=== PATIENT | male | born 1960 | race Caucasian/White ===

== ENCOUNTER 2017-03-26 15:50 | Emergency (ER) | payer MEDICAID, MEDICARE ==
[~2017-03-26] VITALS: Ht 170.2 cm; Wt 73.3 kg
[2017-03-26 15:55] VITALS: BP 159/93
== END 2017-03-26 16:34 | disposition home or self-care (01) ==
LOC: ED 16:00
DX: R22.9 Localized swelling, mass and lump, unspecified (principal)
CPT/HCPCS: 99281